=== PATIENT | male | born 1935 | race Caucasian/White ===

== ENCOUNTER 2022-11-02 11:53 | Outpatient (CLI) | payer MEDICARE, SELFPAY ==
[2022-11-02 13:59] LABS: Albumin* 4.4 g/dL (3.3-5.0); Chloride* 105 mmol/L (96-114); Potassium* 4.8 mmol/L (3.6-5.1); Sodium* 143 mmol/L (135-149)
[2022-11-02 14:01] LABS: Carbon Dioxide* 30 mmol/L (20-32); Cholesterol* 134 mg/dL (90-199); Creatinine* 0.8 mg/dL (0.5-1.5); Estimated Glomerular Filt Rate 87 ml/min
[2022-11-02 14:02] LABS: Alanine Aminotransferase* 24 U/L (4-50); Alkaline Phosphatase* 51 U/L (40-150); Aspartate Amino Transferase* 33 U/L (12-35); Bilirubin Total* 1.1 mg/dL (0.1-1.5); Blood Urea Nitrogen* 21 mg/dL (7-30); Calcium* 9.7 mg/dL (8.4-10.6); Glucose* 125 mg/dL (60-115); HDL Cholesterol* 47 mg/dL (>=40); LDL Cholesterol Calculated 69 mg/dL (<100); Total Protein* 7.3 g/dL (6.0-8.3); Triglycerides* 89 mg/dL (40-149)
== END 2022-11-02 11:54 | disposition home or self-care (01) ==
PROVIDERS: PCP Physician Assistant Medical; Visit Provider Physician Assistant Medical
DX: Z00.00 Encounter for general adult medical examination without abnormal findings (principal); E11.9 Type 2 diabetes mellitus without complications; E78.5 Hyperlipidemia, unspecified; I10 Essential (primary) hypertension
CPT/HCPCS: 80053; 80061

== ENCOUNTER 2023-01-19 10:08 | Outpatient (CLI) | payer MEDICARE, SELFPAY | END 2023-01-19 10:09 | disposition home or self-care (01) | LOC: NFLDREF 01-21 08:09 | PROVIDERS: PCP Physician Assistant Medical; Referring Provider Physician Assistant Medical; Visit Provider Internal Medicine | DX: I25.10 Atherosclerotic heart disease of native coronary artery without angina pectoris (principal) | CPT/HCPCS: 80048 ==

== ENCOUNTER 2023-01-26 08:56 | Outpatient (CLI) | payer MEDICARE, SELFPAY | END 2023-01-26 08:57 | disposition home or self-care (01) | LOC: RAD 08:56 | PROVIDERS: PCP Physician Assistant Medical; Visit Provider Internal Medicine | DX: I50.20 Unspecified systolic (congestive) heart failure (principal); I34.0 Nonrheumatic mitral (valve) insufficiency; I51.7 Cardiomegaly | CPT/HCPCS: 93306 ==

== ENCOUNTER 2023-09-20 08:22 | Emergency (ER) | payer MEDICARE, SELFPAY ==
[2023-09-20] VITALS (11 sets, daily range): BP systolic 165–184; BP diastolic 95–114; PULSE 65–80; RESP 20; TEMP 37.6; O2SAT 87–94; BMI 26.4
--- NOTE | 2023-09-20 08:58 | CRLHL7_ITS ---
For Patients: As a result of the Century Cures Act, medical imaging exams and procedure reports are released immediately into your electronic medical record. You may view this report before your referring provider. If you have questions, please contact your health care provider. INDICATION: COUGH TECHNIQUE: Chest 1 views. COMPARISON: None. FINDINGS: Cardiovascular and mediastinum: Heart size and vasculature are normal in caliber and appearance. Lungs and pleural spaces: Low lung volumes. Retrocardiac opacity which may represent atelectasis or consolidation. No sign of pleural effusion. No pneumothorax. Bones and soft tissues: No significant findings. IMPRESSION: Retrocardiac opacity which may represent atelectasis or consolidation. Dictated by Abelino Sherman MD @ 09/20/2023 10:43:39 AM (Electronically Signed)
--- NOTE | 2023-09-20 09:09 | ED.GENADULT ---
HPI - General Adult General Chief complaint: Skin/Abscess/Foreign Body Stated complaint: rash on L leg Time Seen by Provider: 09/20/23 08:23 Source: patient Mode of arrival: ambulatory Limitations: no limitations History of Present Illness HPI narrative: 87-year-old male presenting to the ER concerned about a rash. States that the rash started 2 days ago and is currently not hurting him. According to his 4 days ago, he started complaining of left leg pain to the point where he could hardly walk. She gave him crutches to walk around on. The following morning he stated that he felt very weak and did not want to eat anything. She took his temperature and it was 100. The following day he was complaining of an upset stomach. This was the day that the rash started. States that he has been nauseated for the last 2 days. No vomiting. does not believe he has had a repeat elevated temperature. He does seem weaker than usual but is able to get around with a cane. Rash seems to be spreading to other areas of the body. Does state that the rash itself is not painful. Related Data Home Medications Medication Instructions Recorded Confirmed furosemide 40 mg tablet 40 mg PO DAILY PRN 05/15/22 09/20/23 aspirin 81 mg tablet,delayed 81 mg PO DAILY 09/20/23 09/20/23 release metoprolol succinate 25 mg 25 mg PO QDAY 09/20/23 09/20/23 tablet,extended release 24 hr Previous Rx's Medication Instructions Recorded clopidogrel 75 mg tablet 75 mg PO QDAY #90 tabs 01/12/23 lisinopril 40 mg tablet 40 mg PO DAILY #90 tabs 06/20/23 metformin 500 mg tablet,extended See Rx Instructions .Route 06/20/23 release 24 hr .COMPLEX #90 tabs nitroglycerin 0.4 mg sublingual 0.4 mg sublingual Q5M PRN chest 06/20/23 tablet pain #25 tabs simvastatin 40 mg tablet 40 mg PO .hs #90 tabs 06/20/23 valacyclovir 1 gram tablet 1,000 mg PO TID 7 days #21 tabs 09/20/23 Allergies Allergy/AdvReac Type Severity Reaction Status Date / Time No Known Allergies Allergy Unknown Verified 09/20/23 08:33 Review of Systems Status of ROS: Reports: 10 or more systems reviewed and unremarkable except as noted in History and below PFSH PFSH Medical History ST-segment elevation myocardial infarction (STEMI) of inferior wall ?I21.19 - ST elevation (STEMI) myocardial infarction involving other coronary artery of inferior wall (ICD-10) Anticoagulation goal of INR 2 to 3 ?Z51.81 - Encounter for therapeutic drug level monitoring (ICD-10) ?Z79.01 - long-term (current) use of anticoagulants (ICD-10) Surgical History History of coronary artery stent placement ?Z95.5 - Presence of coronary angioplasty implant and graft (ICD-10) History of colonoscopy ?Z98.890 - Other specified postprocedural states (ICD-10) Family History Other Heart disease Restless legs syndrome Uterine cancer Social History Narrative: Former smoker Retired worker Smoking Status: Former smoker (quit many years ago) Little interest or pleasure in doing things: not at all Feeling down, depressed, or hopeless: not at all Exam Narrative: Exam Narrative: Elderly patient in no acute distress. Alert and oriented x3. Answers questions appropriately. Mood and affect are appropriate. Thoughts are goal oriented and rational. No tangential or magical thinking noted. Patient speaks in full sentences without needing to catch his breath. Oxygen saturation fluctuates between 90-94% on room air. He is not tachycardic. HEENT: Normocephalic atraumatic. Pupils are equally round reactive to light. Extraocular muscles are intact. Conjunctivae are moist without any icterus noted. Slightly dry mucous membranes. Posterior pharynx is normal. No lesions noted in the inside of the mouth. He does have a couple erythematous papules on his face, neck. Cardiovascular: Heart is regular rate and rhythm S1 and S2 are present without any murmurs. Lungs: Clear to auscultation bilaterally no wheezes rhonchi or rales are appreciated. Patient takes deep breaths without any discomfort. Abdomen: Soft and nontender nondistended with normal bowel sounds. Extremities: Left lower extremity has trace pitting edema. Patient has a non blanchable petechial rash with overall lying vesicles that follow the L5 dermatome from the foot up the leg into the buttocks. Other extremity is normal. Skin: Well perfused . He has scattered papules and some small vesicles that are rare on the trunk and back. Const: Vital Signs, click to edit/add: Vital Signs - 24 hr 09/20/23 08:29 09/20/23 09:44 09/20/23 09:46 Temperature 99.7 F H Pulse Rate 75 Pulse Rate [Pulse Oximeter] 80 Respiratory Rate 20 Blood Pressure Blood Pressure [Ri ght Upper Arm] 173/95 H Pulse Oximetry 92 93 91 Oxygen Delivery Me thod Room Air 09/20/23 10:00 09/20/23 10:05 09/20/23 10:15 Temperature Pulse Rate 75 75 67 Pulse Rate [Pulse Oximeter] Respiratory Rate Blood Pressure Blood Pressure [Ri ght Upper Arm] Pulse Oximetry 90 90 92 Oxygen Delivery Me thod 09/20/23 10:30 09/20/23 10:32 09/20/23 10:50 Temperature Pulse Rate 70 65 79 Pulse Rate [Pulse Oximeter] Respiratory Rate Blood Pressure 165/103 H Blood Pressure [Ri ght Upper Arm] Pulse Oximetry 87 L 92 93 Oxygen Delivery Me thod 09/20/23 11:00 09/20/23 11:02 Temperature Pulse Rate 80 80 Pulse Rate [Pulse Oximeter] Respiratory Rate Blood Pressure 184/114 H Blood Pressure [Ri ght Upper Arm] Pulse Oximetry 94 88 Oxygen Delivery Me thod Course Course ED Course: Differential diagnosis includes vasculitis, shingles, cellulitis. Workup today was unremarkable. We did ambulate the patient to make sure his oxygen saturation did not change in remained steady. He was able to ambulate with the aid of a walker which he does have at home. There is no evidence of infection noted blood work. Chest x-ray showing a retrocardiac opacity consistent with a solution versus atelectasis. Given that the patient has no upper respiratory symptoms no or any evidence of infection on blood work, this likely represents atelectasis. UA does show signs of infection, however patient asymptomatic from a urinary standpoint. Vital Signs Vital signs: Initial Vital Signs Temperature 99.7 F H 09/20/23 08:29 Temperature Source Temporal Artery Scan 09/20/23 08:29 Pulse Rate 80 09/20/23 08:29 Respiratory Rate 20 09/20/23 08:29 Blood Pressure 173/95 H 09/20/23 08:29 Blood Pressure Mean 121 H 09/20/23 08:29 Blood Pressure Position Sitting 09/20/23 08:29 Pulse Oximetry 92 09/20/23 08:29 Oxygen Delivery Method Room Air 09/20/23 08:29 Vital Signs Temperature 99.7 F H 09/20/23 08:29 Pulse Rate 80 09/20/23 08:29 Respiratory Rate 20 09/20/23 08:29 Blood Pressure 173/95 H 09/20/23 08:29 Pulse Oximetry 92 09/20/23 08:29 Oxygen Delivery Method Room Air 09/20/23 08:29 Temperature 99.7 F H 09/20/23 08:29 Pulse Rate 80 09/20/23 11:02 Respiratory Rate 20 09/20/23 08:29 Blood Pressure 184/114 H 09/20/23 11:02 Pulse Oximetry 88 09/20/23 11:02 Oxygen Delivery Method Room Air 09/20/23 08:29 Medical Decision Making MDM Narrative Medical decision making narrative: 87-year-old male with probable shingles given the distribution of the rash. Given its area of dissemination, will also treat with antibiotic to cover any overlying strep or staph infection. Lab Data Lab results reviewed: Yes I reviewed the patient's lab results Labs: Lab Results 09/20/23 09/20/23 09/20/23 Range/Units 09:30 10:10 10:45 WBC 5.79 (4.50-11.00) K/uL RBC 4.45 (4.30-5.90) m/uL Hgb 13.2 L (13.5-17.5) gm/dL Hct 41.6 (37.0-53.0) % MCV 94 (80-100) fL MCH 30 (26-34) pg MCHC 32 (32-36) gm/dL RDW Coeff of Aline 13.4 (11.5-15.5) % Plt Count 105 L (140-440) K/uL Neut % (Auto) 73.7 H (42.0-72.0) % Lymph % (Auto) 14.5 L (20-44) % Wharton % (Auto) 11.4 H (0.0-11.0) % Eos % (Auto) 0.0 (0.0-7.0) % Baso % (Auto) 0.2 (0.0-3.0) % Neut # (Auto) 4.30 (1.7-7.0) K/uL Lymph # (Auto) 0.80 L (0.90-2.90) K/uL [place] # (Auto) 0.70 (0.00-0.90) K/UL Eos # (Auto) 0.00 (0.00-0.50) K/uL Baso # (Auto) 0.01 (0.00-0.30) K/uL Abs Immat Gran (auto) 0.01 (0.00-0.30) K/uL Imm/Tot Granulo (auto) 0.2 % Sodium 136 (135-149) mmol/L Potassium 4.2 (3.6-5.1) mmol/L Chloride 99 (96-114) mmol/L Carbon Dioxide 27 (20-32) mmol/L Anion Gap 10 (7-15) mEq/L BUN 21 (7-30) mg/dL Creatinine 0.7 (0.5-1.5) mg/dL Estimated Creat Clear 55.76 Estimated GFR 90 ml/min Glucose 123 H (60-115) mg/dL Lactate 1.5 (0.5-1.9) mmol/L Calcium 8.8 (8.4-10.6) mg/dL Total Bilirubin 1.0 (0.1-1.5) mg/dL Direct Bilirubin 0.0 (0.0-0.5) mg/dL AST 31 (12-35) U/L ALT 21 (4-50) U/L Alkaline Phosphatase 41 (40-150) U/L C-Reactive Protein 1.1 H (0.5-1.0) mg/dL Total Protein 6.5 (6.0-8.3) g/dL Albumin 4.0 (3.3-5.0) g/dL Procalcitonin 0.06 (<0.50) ng/mL Urine Color Yellow (Yellow) Urine Appearance Clear (Clear) Urine pH 5.5 (5.0-8.5) Ur Specific [place] 1.025 (1.000-1.030) Urine Protein 1+ A (Negative) Urine Glucose (UA) Negative (Negative) Urine Ketones 1+ A (Negative) Urine Blood 1+ A (Negative) Urine Nitrite Negative (Negative) Urine Bilirubin Negative (Negative) Urine Urobilinogen 0.2 (0.2-1.0) Ur Leukocyte Esterase 1+ A (Negative) Urine RBC 0-2 (0-2) Urine WBC 10-25 A (0-5) Ur Squamous Epith Cells Few (None-Few) Amorphous Sediment Few A (None) Urine Bacteria Few A (None) Urine Mucus Moderate A (None) SARS-CoV-2 (PCR) Negative SARS-CoV-2 (Negative) Influenza Type A (PCR) Negative PCR FLU A (Negative) Influenza Type B (PCR) Negative PCR FLU B (Negative) RSV (PCR) Negative PCR RSV (Negative) Imaging Data Chest x-ray: Attestation: I have reviewed the pertinent imaging results. Radiologist's impression: Chest 1 views. COMPARISON: None. FINDINGS: Cardiovascular and mediastinum: Heart size and vasculature are normal in caliber and appearance. Lungs and pleural spaces: Low lung volumes. Retrocardiac opacity which may represent atelectasis or consolidation. No sign of pleural effusion. No pneumothorax. Bones and soft tissues: No significant findings. IMPRESSION: Retrocardiac opacity which may represent atelectasis or consolidation. Discharge Plan Discharge Clinical Impression: Anat Patient Disposition: Home, Self-Care Condition: Stable Additional Instructions: Take both medications as prescribed. Follow-up with your primary care provider next week. Return to the ER if you feel like you develop fevers, vomiting or worsening symptoms. Antibiotics sent to [facility]. Antiviral sent to pharmacy. Prescriptions: New valacyclovir 1 gram tablet 1,000 mg PO TID 7 Days Qty: 21 0RF No Action clopidogrel 75 mg tablet 75 mg PO QDAY Qty: 90 3RF lisinopril 40 mg tablet 40 mg PO DAILY Qty: 90 3RF simvastatin 40 mg tablet 40 mg PO .hs Qty: 90 3RF nitroglycerin 0.4 mg tablet, sublingual 0.4 mg sublingual Q5M PRN (Reason: chest pain) Qty: 25 1RF Rx Instructions: do not exceed 3 doses per episode metformin 500 mg tablet extended release 24 hr See Rx Instructions .ROUTE .COMPLEX Qty: 90 1RF Dose Instruction: TAKE ONE TABLET BY MOUTH ONE TIME DAILY Rx Instructions: TAKE ONE TABLET BY MOUTH ONE TIME DAILY aspirin 81 mg tablet,delayed release (DR/EC) 81 mg PO DAILY metoprolol succinate 25 mg tablet extended release 24 hr 25 mg PO QDAY furosemide 40 mg tablet 40 mg PO DAILY PRN Follow Up/Referrals: Angella Cortes PAPaytonC [Primary Care Provider] - Stand Alone Forms: [employer] Info Instructions
[2023-09-20 10:01] LABS: Chloride* 99 mmol/L (96-114); Sodium* 136 mmol/L (135-149)
[2023-09-20 10:02] LABS: Potassium* 4.2 mmol/L (3.6-5.1)
[2023-09-20 10:04] LABS: Anion Gap 10 mEq/L (7-15); Aspartate Amino Transferase* 31 U/L (12-35); Carbon Dioxide* 27 mmol/L (20-32); Creatinine* 0.7 mg/dL (0.5-1.5); Est. Creatinine Clearance* 55.76; Estimated Glomerular Filt Rate 90 ml/min
[2023-09-20 10:05] LABS: Alanine Aminotransferase* 21 U/L (4-50); Alkaline Phosphatase* 41 U/L (40-150); Blood Urea Nitrogen* 21 mg/dL (7-30); Calcium* 8.8 mg/dL (8.4-10.6); Glucose* 123 mg/dL (60-115); Total Protein* 6.5 g/dL (6.0-8.3)
[2023-09-20 10:07] LABS: C Reactive Protein* 1.1 mg/dL (0.5-1.0)
[2023-09-20 10:22] LABS: Lactate* 1.5 mmol/L (0.5-1.9)
[2023-09-20 10:22] LABS: Procalcitonin* 0.06 ng/mL (<0.50)
[2023-09-20 10:28] LABS: Basophils Absolute Auto 0.01 K/uL (0.00-0.30); Basophils Percent Auto 0.2 % (0.0-3.0); Hematocrit 41.6 % (37.0-53.0); Hemoglobin* 13.2 gm/dL (13.5-17.5); Immature Granulocytes Abs Auto 0.01 K/uL (0.00-0.30); Immature Granulocytes Pct Auto 0.2 %; Lymphocytes Percent Auto 14.5 % (20-44); Mean Corpuscular HGB Conc 32 gm/dL (32-36); Mean Corpuscular Hemoglobin 30 pg (26-34); Mean Corpuscular Volume 94 fL (80-100); Monocytes Percent Auto 11.4 % (0.0-11.0); Neutrophils Percent Auto 73.7 % (42.0-72.0); Platelet Count* 105 K/uL (140-440); RDW Coefficient of Variation % 13.4 % (11.5-15.5); Red Blood Count 4.45 m/uL (4.30-5.90); White Blood Count* 5.79 K/uL (4.50-11.00)
[2023-09-20 10:30] LABS: PCR FLU A Negative PCR FLU A (Negative); PCR FLU B Negative PCR FLU B (Negative); PCR RSV Negative PCR RSV (Negative)
[2023-09-20 10:34] LABS: SARS PCR* Negative SARS-CoV-2 (Negative)
[2023-09-20 11:12] LABS: Appearance Urine Clear (Clear); Bilirubin Urine Negative (Negative); Blood Urine 1+ (Negative); Color Urine Yellow (Yellow); Glucose Urine Negative (Negative); Ketones Urine 1+ (Negative); Leukocyte Esterase Urine 1+ (Negative); Nitrite Urine Negative (Negative); Protein Urine 1+ (Negative); Specific Gravity Urine 1.025 (1.000-1.030); Urobilinogen Urine 0.2 (0.2-1.0); pH Urine 5.5 (5.0-8.5)
[2023-09-20 11:23] LABS: Amorphous Sediment Urine Few; Bacteria Urine Few; Mucus Urine Moderate; RBC Urine 0-2 (0-2); Squamous Epithelial Cell Urine Few (None-Few)
[2023-09-20 11:38] LABS: Erythrocyte SedimentationRate* 10 mm/hr (2-15)
[2023-09-20 11:40] LABS: Slide Review Acceptable Review (Acceptable); Slide Review Reflex Yes
== END 2023-09-20 11:42 | disposition home or self-care (01) ==
PROVIDERS: Emergency Provider Family Medicine; PCP Physician Assistant Medical
DX: B02.9 Zoster without complications (principal); R82.90 Unspecified abnormal findings in urine
CPT/HCPCS: 36415; 71045; 80048; 80076; 81001; 83605; 84145; 85025; 85651; 86140; 87040; 87086; 87631; 94761; 99283; 99284

== ENCOUNTER 2024-07-07 13:56 | Outpatient (CLI) | payer MEDICARE, SELFPAY ==
--- OUTSIDE RECORDS SUMMARY | 2024-07-07 13:58 | XMS_ITS | Clinical Summary ---
Author Organization [facility] Address [place], [place] [address] Care Team Providers Care Code Official Name Role Phone Lisa Nunes MD Primary Care Provider [phone] Allergies No known active allergies Medications Medication Sig Dispensed Refills Start Date End Date Status NITROGLYCERIN 0.4 MG SUBLINGUAL TAB 0.4 mg Sublingual EVERY 5 MINUTES NEEDED 0 0 09/22/2007 Active FUROSEMIDE 40 MG TAB TAKE 1 TABLET BY MOUTH EVERY MORNING 1 0 11/22/2008 Active zolpidem (AMBIEN) 10 mg tablet Take 1 tablet by mouth at bedtime if needed for Sleep. 0 03/15/2011 Active simvastatin (ZOCOR) 40 mg tablet Take 1 tablet by mouth at bedtime. 0 03/15/2011 Active lisinopriL (PRINIVIL; ZESTRIL) 20 mg tablet Take 2 Tablets (40 mg) by mouth every morning. 0 01/12/2023 Active clopidogreL (PLAVIX) 75 mg tabletIndications:Co ronary artery disease, unspecified vessel or lesion type, unspecified whether angina present, unspecified whether [place] or transplanted heart Take 1 Tablet (75 mg) by mouth once daily. 90 Tablet 3 01/09/2024 Active metoprolol succinate (Toprol XL) 25 mg Sustained-Release tabletIndications:Co ronary artery disease, unspecified vessel or lesion type, unspecified whether angina present, unspecified whether [place] or transplanted heart Take 1 Tablet (25 mg) by mouth once daily. 90 Tablet 3 01/09/2024 Active Active Problems Problem Noted Date Diagnosed Date Ischemic Cardiovascular Disease Overview (03/21/2011): -s/p Level I MA 09/20/07 *S/P KATHARINA OF RCA -03/20/11- S/p KATHARINA X2 to LAD, possible anterior MA History of Nicotine Dependence Ischemic Cardiomyopathy (ICMP) Overview (03/21/2011): -Echo 09/20/07 w/ EF 45% during acute MA -Echo 2007: EF 45% -LV Gram 03/20/11-EF 30% Chronic Systolic Congestive Heart Failure Overview (03/21/2011): -acute systolic CHF with MA 2006 - EF approx 35% post IMI Dyslipidemia Syncope Hypertension AVB (atrioventricular block) Overview (03/21/2011): -demonstrated on Holter monitor 2010 - associated with sleep and suggestive of NANCIE Immunizations Name Administration Dates Next Due COVID-19 vaccine ([facility] 30mcg/0.3mL) P F, MDRaymond 12/09/2020,11/18/2020 Family History Medical History Relation Name Comments Other Brother 2 age 40 , hit by a car Good Health Daughter 3 Good Health Daughter 4 Heart Disease Father age 6 3 myocardial infarction Hypertension Mother age 10 1, old age. Heart issues later on, pacemaker Heart Disease Paternal Uncle Multiple unc les of cardiac reasons Good Health Son 2 Relation Name Status Comments Brother 1 Brother 2 Daughter 1 Alive Daughter 2 Alive Daughter 3 Daughter 4 Father Mother Paternal Uncle Son 1 Alive Son 2 Social History Tobacco Use Types Packs/Day Years Used Date Smoking Tobacco: Former Cigarettes 0.5 30 1 11/01/1976 - 08/31/2007 Cigars Comments:Quit cigarettes in 1995, quit cigars in 2006 Alcohol Use Standard Drinks/Week Comments Yes 0 (1 standard drink = 0.6 oz pur e alcohol) Occasional beer or wine Social Connections Answer Date Recorded Frequency of Communication with Friends and Fami ly Not on file 01/12/2023 Sex and Gender Information Value Date Recorded Sex Assigned at Not on file Gender Identity Not on file Sexual Orientation Not on file Obstetrics History Last Filed Vital Signs Vital Sign Reading Time Taken Comments Blood Pressure 146/86 10/27/2013 12:14 PM [employer] Pulse 68 10/27/2013 12:14 PM [employer] Temperature 37 ??C (98.6 ??F) 03/21/2011 8:00 AM CDT Respiratory Rate 16 03/21/2011 8:00 AM CDT Oxygen Saturation 98% 03/21/2011 8:00 AM CDT Inhaled Oxygen Concentration - - Weight 98.3 kg (216 lb 12.8 oz) 011 10:39 AM CDT Height 182.9 cm (6') 03/20/2011 10:39 AM CDT Body Mass Index 29.4 03/20/2011 10:39 AM CDT Plan of Treatment Upcoming Encounters Date Type Department Care Team (Late st Contact Info) Description 07/07/2024 2:00 PM CDT Ancillary Procedure [facility] [address] [place] [address] Health Maintenance Due Date Last Done Comments Pneumococcal series for age 65+ (1 of 2 - PCV) 12/18/1943 Tdap 1948 Depression screening for age 12+ 1949 BMI (ht and wt on same day) for age 18+ 12/18/1955 Tetanus booster 1957 Zoster (shingles) series for age 50+ (1 of 2) 12/18/1987 Medicare Wellness for age 65+ 2002 RSV vaccine for adults or pr egnancy (1 - 1-dose 75+ series) 2012 COVID-19 vaccine series (2023- season) 2024 09/15/2021, 12/09/2020, 11/18/2020 Influenza for age 65+ 06/01/2024 Advance Directives * Full Code (Latest Code Status on File) Date Activated Date Inactivated Comments 03/20/2011 1:04 PM 03/21/2011 5:05 PM * Full Code Date Activated Date Inactivated Comments 09/20/2007 5:38 AM 09/22/2007 5:33 PM Care Teams Code Official Relationship Specialty Start Date End Date Lisa Nunes MD [address] [place] [address] PCP - General 01/12/23
[2024-07-07] MEDS: PERFLUTREN LIPID MICROSPHERES 2 ML VIAL IV (15:35)
== END 2024-07-07 13:57 | disposition home or self-care (01) ==
LOC: RAD 13:56
PROVIDERS: PCP Physician Assistant Medical; Visit Provider Internal Medicine
DX: I25.10 Atherosclerotic heart disease of native coronary artery without angina pectoris (principal); I51.7 Cardiomegaly
CPT/HCPCS: 93306; Q9957

== ENCOUNTER 2024-10-22 10:50 | Outpatient (CLI) | payer MEDICARE, SELFPAY | END 2024-10-22 10:51 | disposition home or self-care (01) | LOC: NFLDREF 10-31 08:39 | PROVIDERS: PCP Physician Assistant Medical; Referring Provider Physician Assistant Medical; Visit Provider Physician Assistant Medical | DX: I25.10 Atherosclerotic heart disease of native coronary artery without angina pectoris (principal); I10 Essential (primary) hypertension; E78.2 Mixed hyperlipidemia; E11.9 Type 2 diabetes mellitus without complications; Z12.5 Encounter for screening for malignant neoplasm of prostate | CPT/HCPCS: 80053; 80061; 82043; 82570; 84443; G0103 ==

== ENCOUNTER 2025-01-15 13:15 | Outpatient (CLI) | payer MEDICARE, SELFPAY | END 2025-01-15 13:16 | disposition home or self-care (01) | LOC: FRMREF 13:15 | PROVIDERS: PCP Physician Assistant Medical; Visit Provider Physician Assistant Medical | DX: R82.90 Unspecified abnormal findings in urine (principal) | CPT/HCPCS: 87086 ==

== ENCOUNTER 2025-01-15 15:19 | Outpatient (CLI) | payer MEDICARE, SELFPAY ==
[2025-01-15 15:59] LABS: Creatinine* 0.7 mg/dL (0.5-1.5); Estimated Glomerular Filt Rate 89 ml/min
--- NOTE | 2025-01-15 16:00 | CRLHL7_ITS ---
For Patients: As a result of the Century Cures Act, medical imaging exams and procedure reports are released immediately into your electronic medical record. You may view this report before your referring provider. If you have questions, please contact your health care provider. INDICATION: Right lower quadrant abdomen swelling and mass. TECHNIQUE: CT abdomen and pelvis acquired with 90 cc Isovue 370 IV contrast. COMPARISON: None. FINDINGS: Lower chest: Coronary artery atherosclerosis is present. Liver: Fatty infiltration. Otherwise unremarkable. Gallbladder and bile ducts: Moderately dilated. No sign of wall thickening or inflammation. No stone visualized. No biliary dilatation. Pancreas: Unremarkable. No mass or inflammation. Spleen: Unremarkable. Normal in size. No masses. Adrenal glands: Unremarkable. No nodules. Kidneys: Bilateral atrophy. Otherwise unremarkable. GI tract: Large right inguinal hernia containing loops of nonobstructed ileum. Remainder of the GI tract is unremarkable. Normal appendix. Vasculature: Abdominal aorta is normal in caliber. Mesenteric arteries are patent. Lymph nodes: No lymphadenopathy. Peritoneum/Abdominal Wall: Mild mesenteric edema within the right inguinal hernia sac. No fluid collections and no free air. Pelvis: Unremarkable. Bones: Unremarkable for age. IMPRESSION: Large right inguinal hernia containing nonobstructed loops of ileum. Mild mesenteric edema within the hernia sac suggesting some degree of vascular compromise. No other specific signs of incarceration. Please note that all CT scans at this facility use dose modulation, iterative reconstruction, and/or weight-based dosing when appropriate to reduce radiation dose to as low as reasonably achievable. Dictated by Spenser Stewart MD @ 01/18/2025 8:39:27 AM (Electronically Signed)
== END 2025-01-15 15:20 | disposition home or self-care (01) ==
LOC: CT 15:21
PROVIDERS: PCP Physician Assistant Medical; Visit Provider Physician Assistant Medical
DX: R19.03 Right lower quadrant abdominal swelling, mass and lump (principal); K40.90 Unilateral inguinal hernia, without obstruction or gangrene, not specified as recurrent
CPT/HCPCS: 36415; 74177; 82565; Q9967

== ENCOUNTER 2025-01-21 13:50 | Outpatient (CLI) | payer MEDICARE, SELFPAY | END 2025-01-21 13:51 | disposition home or self-care (01) | LOC: RAD 13:51 | PROVIDERS: PCP Physician Assistant Medical; Visit Provider Internal Medicine | DX: I25.10 Atherosclerotic heart disease of native coronary artery without angina pectoris (principal); I50.9 Heart failure, unspecified; I42.9 Cardiomyopathy, unspecified; I51.7 Cardiomegaly | CPT/HCPCS: 93306 ==

== ENCOUNTER 2025-02-19 10:30 | Outpatient (CLI) | payer MEDICARE, SELFPAY | END 2025-02-19 10:31 | disposition home or self-care (01) | LOC: NFLDREF 02-25 17:43 | PROVIDERS: PCP Physician Assistant Medical; Referring Provider Physician Assistant Medical; Visit Provider Internal Medicine | DX: I50.22 Chronic systolic (congestive) heart failure (principal) | CPT/HCPCS: 80048; 83880 ==

== ENCOUNTER 2025-03-05 06:11 | Day surgery (SDC) | payer MEDICARE, SELFPAY ==
[2025-03-05] VITALS (14 sets, daily range): BP systolic 109–159; BP diastolic 57–97; PULSE 41–65; RESP 14–25; TEMP 36.2–36.7; O2SAT 92–99; BMI 24.3
[2025-03-05] MEDS: LACTATED RINGERS 1000 ML 1,000 ML 100 ML IV (06:20)
[2025-03-05] MEDS: SODIUM CHLORIDE 0.9 % (FLUSH) 10 ML SYRINGE IVF (06:48)
[2025-03-05] MEDS: LIDOCAINE 1 % PF 30 ML INJECTION (07:40)
[2025-03-05] MEDS: BUPIVACAINE 0.5% 30 ML INJECTION (07:40)
--- NOTE | 2025-03-05 07:43 | P.ANES_ITS ---
Anesthesia Charges Start Date/Time Anesthesia Start Date: 03/05/25 Anesthesia Start Time: 07:37 Stop Date/Time Anesthesia Stop Date: 03/05/25 Anesthesia Stop Time: 09:42 Coding CPT Codes CPT Codes: ANESTH REPAIR OF HERNIA - 05175 ([id number]) P3 - PATIENT W/SEVERE SYS DISEASE, QK - SENIOR COMMUNICATIONS SPECIALIST 2-4 CNCRNT ANES PROC, QX - LINSEED OIL TEMPERER SVC W/ MD MED DIRECTION
--- NOTE | 2025-03-05 07:43 | W.ANESCHARGE ---
Anesthesia Charges Start Date/Time Anesthesia Start Date: 03/05/25 Anesthesia Start Time: 07:37 Stop Date/Time Anesthesia Stop Date: 03/05/25 Anesthesia Stop Time: 09:42 Coding CPT Codes CPT Codes: ANESTH REPAIR OF HERNIA - 38327 ([id number]) P3 - PATIENT W/SEVERE SYS DISEASE, QK - MARKET DEVELOPER 2-4 CNCRNT ANES PROC, QX - TRADE FACILITATOR SVC W/ MD MED DIRECTION
--- NOTE | 2025-03-05 07:44 | W.PM.H&PU ---
History & Physical Update History & Physical Update H&P Reviewed and patient assessed: No changes noted
[2025-03-05] MEDS: CEFAZOLIN 1 GM inj IVP (07:45)
--- NOTE | 2025-03-05 07:50 | PM.GSPRC ---
Operative Note Date of procedure: 03/05/25 Pre-op diagnosis: Right scrotal inguinal hernia Post-op diagnosis: Same Type of Procedure: Open repair right inguinal hernia with mesh Indications: The patient is an 89-year-old male who recently noticed a groin bulge after doing some heavy lifting. He was found to have a large right inguinal hernia on exam. He described what may be obstructive symptoms. I recommended repair and after discussion of risks and benefits he agreed to proceed. Procedure Description: After discussing the risks and benefits of the procedure, the patient signed informed consent.? The operative site was marked and the patient was brought to the operating room and placed on the operating table in supine position.? Care was taken to pad the patient's pressure points.?? The patient was then given sedation by anesthesia.?? The operative site was then prepped and draped in the usual sterile fashion.? A time-out was then performed. Local anesthetic was injected into the skin and subcutaneous tissue overlying the inguinal canal. An ilioinguinal nerve block was performed. An oblique incision was made over the external ring. Dissection was carried down into the subcutaneous tissue using cautery until the external oblique fascia was encountered. This was cleared off. The external ring was identified and after injection of more local anesthetic, the external oblique was incised using a knife. This was extended using the Metzenbaum scissors with care to dissect the underlying cord structures away from the fascia before cutting. I was not able to identify any structures consistent with the ilioinguinal nerve. The hernia sac was cleared from the inside of the inguinal canal. The hernia sac was quite large and therefore initially I was unable to looped this with a Johana drain. A carefully dissected through the cremasteric fibers which were thickened. The cord structures were palpated and care was taken to avoid injury. I was eventually able to loop the cord and hernia sac with a Johaan. I began by attempting to dissect the hernia sac from the cord structures using a combination of blunt dissection with a mosquito and cautery. I encountered a sac with clear fluid. This contained the testicle and was consistent with a noncommunicating hydrocele. A large cord lipoma was noted and the distal aspect of the hernia sac was identified. The hernia sac and the cord lipoma were then dissected from the cord structures. These were both emerging from the internal ring, consistent with an indirect hernia. I began by dissecting through the preperitoneal herniated fat and ligating this with suture before dividing and discarding the tissue. Care was taken to ensure no intra-abdominal structures were contained within. I then opened the hernia sac. No intra-abdominal structures were contained within at this point. The sac was then ligated and the excess excised. The proximal and was then reduced into the abdomen. A piece of polypropylene mesh was obtained and cut to size. This was secured to the pubic tubercle using to 0 Prolene on a double-armed suture. The Prolene was run along the inguinal ligament inferiorly and along the transversalis fascia superiorly, securing the tails around the cord and re-creating the internal ring. The ring was just large enough to permit my fingertip. I did reinforce the mesh with 2 additional sutures at the anteromedial aspect of the mesh placement given that the patient's abdominal wall tissue was somewhat attenuated. The wound was examined for hemostasis which was found to be excellent. I then pulled the testicle up to re-examine the area of the hydrocele. Because the anterior sac had been adherent to the cremaster muscles, when it was dissected free, the majority of the sac had been removed or retracted, therefore, I did not excise any additional sac. The testicle was placed back into the scrotum. The external oblique fascia was then reapproximated with absorbable suture. The wound was then closed in layers including Hakeem's fascia and the dermis with absorbable suture. The skin was then closed with a running subcuticular suture. Glue was then applied. The scrotum was examined and both testicles were contained within. Instrument, sponge, and needle counts were correct at the end of the case. The patient was woken and taken to the recovery in stable condition. ? The patient tolerated the procedure well. Findings: 1. Large indirect right inguinal hernia with large cord lipoma 2. Moderate noncommunicating hydrocele Anesthesia: MAC Surgeon: Alba Pearson MD Estimated blood loss (mL): 5 Condition: stable Disposition: same day
[2025-03-05] MEDS: BUPIVACAINE LIPOSOME 133 MG/10 ML INJ INFILTRATI (09:15)
--- NOTE | 2025-03-05 09:38 | P.ANES_ITS ---
Anesthesia Charges Start Date/Time Anesthesia Start Date: 03/05/25 Anesthesia Start Time: 07:37 Stop Date/Time Anesthesia Stop Date: 03/05/25 Anesthesia Stop Time: 09:42 Summary Extremes of Age - Over 70 or under 1: MDA Coding CPT Codes CPT Codes: ANESTH REPAIR OF HERNIA - 40159 ([id number]) P3 - PATIENT W/SEVERE SYS DISEASE, QK - DENTAL OFFICE RECEPTIONIST 2-4 CNCRNT ANES PROC, QX - DARKLIGHT INSPECTOR SVC W/ MD MED DIRECTION Additional Codes: Summary - Extremes of Age - Over 70 or under 1: MDA ([id number])
--- NOTE | 2025-03-05 09:38 | W.ANESCHARGE ---
Anesthesia Charges Start Date/Time Anesthesia Start Date: 03/05/25 Anesthesia Start Time: 07:37 Stop Date/Time Anesthesia Stop Date: 03/05/25 Anesthesia Stop Time: 09:42 Summary Extremes of Age - Over 70 or under 1: MDA Coding CPT Codes CPT Codes: ANESTH REPAIR OF HERNIA - 75839 ([id number]) P3 - PATIENT W/SEVERE SYS DISEASE, QK - GEOPHYSICS TEACHER 2-4 CNCRNT ANES PROC, QX - TERRAZZO WORKER HELPER SVC W/ MD MED DIRECTION Additional Codes: Summary - Extremes of Age - Over 70 or under 1: MDA ([id number])
--- NOTE | 2025-03-05 10:15 | SUR.PHASEI ---
Recovered in PACU d/t increased drowsiness. Pt started to get agitated and attempting to get out of bed by end of recovery period. Glucose taken at 09:50 was 128. Total IVF received in OR and PACU was 320 d/t reduced EF and h/o HFrEF
[2025-03-05] MEDS: ACETAMINOPHEN 325 MG TABLET 650 MG PO (10:30)
[2025-03-05] MEDS: hydrOXYzine pamoate 25 MG CAPSULE PO (10:30)
== END 2025-03-05 12:06 | disposition home or self-care (01) ==
LOC: OR 06:12
PROVIDERS: PCP Physician Assistant Medical; Visit Provider Surgery
PROC: (CPT 49505; principal; 2025-03-05 07:30)
DX: K40.90 Unilateral inguinal hernia, without obstruction or gangrene, not specified as recurrent (principal); E11.9 Type 2 diabetes mellitus without complications; Z79.84 Long term (current) use of oral hypoglycemic drugs; I10 Essential (primary) hypertension; I25.10 Atherosclerotic heart disease of native coronary artery without angina pectoris; E78.2 Mixed hyperlipidemia
CPT/HCPCS: 49505; 00830; 82962; 99100; A9270; C1781; J0665; J0666; J0690; J1100; J2003; J2405; J2704; J3010; J3490; J7120

== ENCOUNTER 2025-07-13 12:43 | Outpatient (CLI) | payer MEDICARE, SELFPAY | END 2025-07-13 12:44 | disposition home or self-care (01) | LOC: RAD 12:43 | PROVIDERS: PCP Physician Assistant Medical; Visit Provider Internal Medicine | DX: I42.9 Cardiomyopathy, unspecified (principal); I51.7 Cardiomegaly; I07.1 Rheumatic tricuspid insufficiency | CPT/HCPCS: 93308; 93321; 93325 ==